=== PATIENT | male | born 1960 | race Caucasian/White ===

== ENCOUNTER 2019-06-15 07:47 | Day surgery (SDC) | payer OTHER ==
[2019-06-15] VITALS (11 sets, daily range): BP systolic 111–139; BP diastolic 73–94; PULSE 0–99; RESP 16–27; Ht 177.8 cm; Wt 106.3 kg
[~2019-06-15] VITALS: Ht 177.8 cm; Wt 106.3 kg
[~2019-06-15 07:47] MED LIST: AMLO-147 PO; APIX2.5T PO; AZIT250T PO; CARV6.2579 PO; ISOS30TA67 PO; LISI-313 PO
[2019-06-15] MEDS ORDERED: GELATIN SIZE 100 SPONGE ONE (09:39)
[2019-06-15] MEDS ORDERED: THROMBIN 5000 UNIT (RECOTHROM) VIAL ONE (09:39)
[2019-06-15] MEDS ORDERED: LIDOCAINE 1% (MPF) 30 ML INJ ONE (09:40)
[2019-06-15] MEDS ORDERED: HEPARIN 1000 UNITS/ML 10 ML INJ ONE (09:40)
[2019-06-15] MEDS ORDERED: PROPOFOL 20 ML ONE (09:47)
[2019-06-15] MEDS ORDERED: FENTAnyl 50 MCG/ML VIAL ONE (09:47)
[2019-06-15] MEDS ORDERED: ROPIVACAINE 0.2% 20 ML VIAL ONE (09:47)
[2019-06-15] MEDS ORDERED: CEFAZOLIN 1 GM INJ ONE (09:47)
[2019-06-15] MEDS ORDERED: MIDAZOLAM 1 MG/ML 2 ML INJ ONE (09:47)
[2019-06-15] MEDS ORDERED: ROCURONIUM 50 MG INJ ONE (09:47)
[2019-06-15] MEDS ORDERED: HYDROmorphONE 1 MG/5 ML IV SYRINGE IV PRN ×3 (10:00)
[2019-06-15] MEDS ORDERED: LABETALOL HCL 20MG INJ IV PRN (10:00)
[2019-06-15] MEDS ORDERED: DIPHENHYDRAMINE 50 MG INJ IV PRN (10:00)
[2019-06-15] MEDS ORDERED: hydrALAzine 20 MG INJ IV PRN (10:00)
[2019-06-15] MEDS ORDERED: ONDANSETRON 4 MG INJ IV PRN (10:00)
[2019-06-15] MEDS ORDERED: OXYCODONE/ACETAMINOPHEN (5/325) TAB PO PRN ×2 (10:00)
[2019-06-15] MEDS ORDERED: FENTAnyl 50 MCG/ML VIAL IV PRN ×3 (10:00)
[2019-06-15] MEDS ORDERED: MEPERIDINE 25 MG INJ IV PRN (10:00)
== END 2019-06-15 13:06 | disposition home or self-care (01) ==
LOC: SDS 07:47
PROVIDERS: ATTEND Surgery Vascular Surgery
DX: I12.0 Hypertensive chronic kidney disease with stage 5 chronic kidney disease or end stage renal disease (principal); N18.6 End stage renal disease
CPT/HCPCS: 36821; 71045; 80053; 85025; 85610; 85651; 85730; 93005; J0690; J1644; J2250; J2795; J3010; Z7512; Z7610